=== PATIENT | female | born 1945 | race Caucasian/White ===

== ENCOUNTER 2018-01-09 16:41 | Emergency (ER) | payer MEDICARE ==
[~2018-01-09] VITALS: Ht 167.6 cm; Wt 63.5 kg
[~2018-01-09 16:41] MED LIST: ABAC300; ACYC800 PO; ALBIPROI INH; ALPR.5 PO; ASPI325 PO; ASPI81CH PO; ASPI81EC PO; BACL10 PO; BUME2 PO; BUSP10 PO; BUSP15 PO; CARV3.125 PO; CARV6.25 PO; CEPH500 PO; CITA20 PO; CLOP75 PO; COLE1 PO; Catapres-Tts 11 EACH TOP; DIGO.125 PO; ERGO50000 PO; FLUSAL1005 INH; FLUSAL2505 IH; FURO20 PO; FURO40 PO; LEVE500 PO; LEVSOD100 PO; LEVSOD88 PO; LISI5 PO; MAGCHL64ER; MAGOXI400 PO; METO2.5 PO; NITR.4SL SL; NITR.6SL SL; Nyamyc15 GM; OXYC10TA19 PO; OXYC15ER PO; PHENY100ER PO; PHENY30ER PO; POTA10T PO; POTCHL10ER PO; POTCHL20ER PO; PREG50 PO; PROM25 PO; SERT50 PO; SIMV10 PO; SIMV40 PO; SPIR25 PO; TIOT18 IH; VITAMIN D35000 UNIT PO; Zofran Odt4 MG SL; Zofran8 MG PO
[2018-01-09] MEDS ORDERED: Norco 5-325 Ta1 EACH PO (18:10)
[2018-01-09] MEDS ORDERED: Prednisone10 MG PO (18:10)
== END 2018-01-09 18:52 | disposition home or self-care (01) ==
LOC: ER 16:41
DX: M10.9 Gout, unspecified (principal); Z91.030 Bee allergy status; Z79.899 Other long term (current) drug therapy; Z79.82 Long term (current) use of aspirin; Z79.891 Long term (current) use of opiate analgesic; I50.9 Heart failure, unspecified; J44.9 Chronic obstructive pulmonary disease, unspecified; F17.210 Nicotine dependence, cigarettes, uncomplicated
CPT/HCPCS: 99282

== ENCOUNTER 2018-02-20 09:25 | Emergency (ER) | payer MEDICARE ==
[~2018-02-20] VITALS: Ht 170.2 cm; Wt 64.4 kg
[~2018-02-20 09:25] MED LIST changes: +BUME1 PO; -BUME2 PO; +LEVSOD125 PO; +Norco 5-325 Ta1 EACH PO; +Prednisone10 MG PO
[2018-02-20] MEDS ORDERED: FOLI1 PO (09:56)
[2018-02-20] MEDS ORDERED: LOSA25 PO (09:58)
[2018-02-20] MEDS ORDERED: METO25ER PO (09:59)
[2018-02-20] MEDS ORDERED: HYDR1TAB94 PO (10:44)
== END 2018-02-20 11:49 | disposition home or self-care (01) ==
LOC: ER 09:25
DX: I73.9 Peripheral vascular disease, unspecified (principal); I50.9 Heart failure, unspecified; J44.9 Chronic obstructive pulmonary disease, unspecified; I25.10 Atherosclerotic heart disease of native coronary artery without angina pectoris; Z91.038 Other insect allergy status; Z79.899 Other long term (current) drug therapy; Z79.82 Long term (current) use of aspirin; Z79.52 Long term (current) use of systemic steroids
CPT/HCPCS: 93926; 99283-25

== ENCOUNTER 2018-02-24 06:45 | Emergency (ER) | payer MEDICARE ==
[~2018-02-24] VITALS: Ht 170.2 cm; Wt 65.8 kg
[~2018-02-24 06:45] MED LIST changes: +FOLI1 PO; +HYDR1TAB94 PO; +LOSA25 PO; +METO25ER PO
[2018-02-24] MEDS ORDERED: Percocet 7.5-31 EACH PO (08:02)
== END 2018-02-24 08:20 | disposition home or self-care (01) ==
LOC: ER 06:45
DX: I73.9 Peripheral vascular disease, unspecified (principal); I50.9 Heart failure, unspecified; J44.9 Chronic obstructive pulmonary disease, unspecified; I25.10 Atherosclerotic heart disease of native coronary artery without angina pectoris; F17.210 Nicotine dependence, cigarettes, uncomplicated; Z79.899 Other long term (current) drug therapy; Z79.82 Long term (current) use of aspirin
CPT/HCPCS: 96374; 99283-25; J3010